=== PATIENT | female | born 1970 | race Caucasian/White ===

== ENCOUNTER 2022-04-01 21:38 | Inpatient (IN) | payer OTHER ==
[~2022-04-01] VITALS: Ht 142.2 cm; Wt 67.6 kg
[2022-04-01 21:49] VITALS: BP 133/90
--- NOTE | 2022-04-01 21:54 | NUR ---
pt to bed 4
[2022-04-01] MEDS ORDERED: NACL 0.9% 1,000 ML IV SCH (22:00)
[2022-04-01] MEDS ORDERED: KETOROLAC 30 MG/ML VIAL IVP ONE (22:00)
[2022-04-01] MEDS ORDERED: ONDANSETRON 4 MG/2 ML VIAL IVP ONE (22:00)
--- NOTE | 2022-04-01 22:10 | NUR ---
ASSUME CARE OF PT, PT C/O RLQ PAIN WITH N/V X 2DAYS, PT PLACED IN GOWN AND MONITOR, PT TENDER TO TOUCH.
[2022-04-01 22:16] LABS: HEMATOCRIT 30.8 % (36-48); HEMOGLOBIN 9.9 g/dL (12.0-16.0); MEAN CORPUSCULAR HEMOGLOBIN 21 pg (27-31); MEAN CORPUSCULAR HGB CONC 32 g/dL (33-37); MEAN CORPUSCULAR VOLUME 65.5 fL (80-94); PLATELET COUNT (AUTO) 447 K/uL (140-450); RED CELL DISTRIBUTION WIDTH 16.2 % (11.6-13.7); WHITE BLOOD COUNT (AUTO) 23.5 K/uL (4.8-10.8)
[2022-04-01 22:38] LABS: ALBUMIN 3.1 g/dL (3.4-5.0); ANION GAP 14.7 (8-16); CARBON DIOXIDE 24.7 mmol/L (21-32); CREATININE 0.6 mg/dL (0.6-1.3); POTASSIUM 3.4 mmol/L (3.5-5.1); TOTAL BILIRUBIN 0.4 mg/dL (0.0-1.0)
[2022-04-01 22:55] LABS: LYMPHOCYTES % (MANUAL) 5 % (20-46); MONOCYTES % (MANUAL) 5 % (5-12)
[2022-04-01] MEDS ORDERED: MORPHINE SULFATE 4 MG/ML SYR IVP ONE (22:55)
--- NOTE | 2022-04-01 23:00 | NUR ---
DR FINE AT BEDSIDE EVALUATING PT
[2022-04-01 23:01] LABS: APPEARANCE,URINE SL CLOUDY (CLEAR); BILIRUBIN,URINE NEGATIVE (NEGATIVE); BLOOD, URINE 1+ (NEGATIVE); COLOR,URINE YELLOW (YELLOW); LEUKOCYTE ESTERASE ,URINE NEGATIVE (NEGATIVE); NITRITE, URINE NEGATIVE (NEGATIVE); UGLUCOSE 3+ (NEGATIVE)
[2022-04-01] MEDS ORDERED: metroNIDAZOLE 500 MG/NS PREMIX 100 ML IV ONE (23:35)
[2022-04-01] MEDS ORDERED: PIPERACILLIN/TAZOBACTAM 3.375 GM in DEXTROSE 5% 50 ML IV ONE (23:35)
[2022-04-01] MEDS ORDERED: PIPERACILLIN/TAZOBACTAM 3.375 GM VIAL IV ONE (23:44)
--- NOTE | 2022-04-02 00:45 | NUR ---
PT C/O INCREASE RLQ ABD PAIN, DR FINE NOTIFIED.
--- NOTE | 2022-04-02 00:52 | NUR ---
CALLED DR POWELL
[2022-04-02] MEDS ORDERED: HYDROmorphone PFS 2 MG/ML SYR IVP ONE (00:55)
--- NOTE | 2022-04-02 01:10 | NUR ---
PER PT CAN GIVE INFORMATION TO SEBASTIAN. SPOKE WITH AND GAVE PT UPDATES.
[2022-04-02 01:16] LABS: PROTHROMBIN TIME 10.2 secs (10.8-13.4)
[2022-04-02] MEDS ORDERED: METF-1243 PO (01:36)
[2022-04-02] MEDS ORDERED: INSU100V9 SQ (01:36)
--- NOTE | 2022-04-02 02:00 | NUR ---
PT RESTING IN BED, PT STATES HER PAIN HAS REDUCED.
[2022-04-02] MEDS ORDERED: DEXT 5% /NACL 0.9% 1,000 ML IV SCH (02:25)
--- NOTE | 2022-04-02 02:51 | NUR ---
Patient will be admitted to care of JAROCHO MOULTON. Admited to TELEMETRY. Will go to room 111A. Belongings list completed. Report to DANIEL ESQUIVEL.
[2022-04-02] MEDS ORDERED: MORPHINE SULFATE 2 MG/ML SYR IVP PRN (02:55)
[2022-04-02 03:15] VITALS: BP 152/80
--- NOTE | 2022-04-02 03:15 | NUR ---
RECEIVED PT FROM EMERGENCY ROOM ADMITTED TO MST UNIT WITH CHIEF COMPLAINT OF RIGHT LOWER ABDOMINAL PAIN , LOWER MID ABDOMINAL PAIN AND NAUSEA/VOMITING, DIAGNOSIS: ACUTE APPENDICITIS & ABDOMINAL PAIN. PT IS AWAKE, ALERT AND ABLE TO VERBALIZED NEEDS. SHE HAS NO ALLERGY, A FULL CODE AND AMBULATORY INDEPENDENTLY. PT IS NPO EXCEPT MEDS AT THIS TIME. IV SITE ON LEFT AC 18G INTACT AND PATENT, INFUSING WELL D5NS AT 125 ML/HR. CONTINUE MONITORING.
--- NOTE | 2022-04-02 04:25 | NUR ---
PT COMPLAINTS OF PAIN 6/10 ON ABDOMINAL AREA. PAIN MEDICATION MORPHINE ADMINISTERED ORDER.
--- NOTE | 2022-04-02 05:25 | NUR ---
PT ASLEEP. NO SOB OR DISTRESS.
--- NOTE | 2022-04-02 07:40 | NUR ---
PT IS ON STABLE CONDITION, ALL SAFETY MEASURES ARE IN PLACE. ENDORSED TO DAY SHIFT NURSE FOR CONTINUITY OF CARE.
[2022-04-02] MEDS ORDERED: POTASSIUM CHLORIDE 10 MEQ TABER PO PRN (07:50)
[2022-04-02] MEDS ORDERED: LORazepam 2 MG/ML VIAL IVP PRN (07:50)
[2022-04-02] MEDS ORDERED: DOCUSATE SODIUM 100 MG GELCAP PO PRN (07:50)
[2022-04-02] MEDS ORDERED: ZOLPIDEM 10 MG TAB PO PRN (07:50)
[2022-04-02] MEDS ORDERED: MAG SULF 2000 MG/WATER PREMIX 50 ML IV PRN (07:50)
[2022-04-02] MEDS ORDERED: DEXTROSE 50% 50 ML SYR IVP PRN (07:55)
[2022-04-02] MEDS ORDERED: NACL 0.9% 1,000 ML IV SCH ×3 (07:55→16:20)
[2022-04-02 08:00] VITALS: BP 128/69
[2022-04-02] MEDS: ACETAMINOPHEN 325 MG TAB PO PRN (08:51)
[2022-04-02] MEDS: MORPHINE SULFATE 2 MG/ML SYR IVP PRN ×3 (08:51→21:06)
[2022-04-02] MEDS ORDERED: KCL 20 MEQ/WATER INJ PREMIX 100 ML IV SCH (10:00)
--- NOTE | 2022-04-02 10:35 | NUR ---
PATIENT HAS BEEN SCREENED AND CATEGORIZED MODERATE NUTRITION RISK. PATIENT WILL BE SEEN WITHIN 3-5 DAYS OF ADMISSION. 04/02/22-04/07/22 REVIEWED BY DELANO WHITE RD Addendum: 04/02/22 at [address] REFERRAL RECEIVED FOR VOMITING OVER THREE DAYS; NOT APPLICABLE DELANO WHITE RD
[2022-04-02] MEDS: BLOOD GLUCOSE MONITORING 1 DEV DEV FS SCH ×3 (11:53→20:28)
[2022-04-02] MEDS: INSULIN LISPRO SLIDING SCALE 100 UNITS/ML VIAL SUBQ PRN ×2 (12:25→20:27)
[2022-04-02] MEDS: PIPERACILLIN/TAZOBACTAM 3.375 GM in DEXTROSE 5% 50 ML IV SCH ×2 (12:25→18:02)
[2022-04-02 12:33] VITALS: BP 116/66
--- NOTE | 2022-04-02 14:20 | NUR ---
DC PLANNING ATTEMPTED TO MEET WITH PATIENT AT BEDSIDE TO COMPLETE ASSESSMENT, HOWEVER, PT NOT IN ROOM
[2022-04-02] MEDS ORDERED: SEVOFLURANE 250 ML BTL INH ONE (14:21)
[2022-04-02] MEDS ORDERED: fentaNYL citrate 0.05 MG/ML VIAL ONE (14:25)
[2022-04-02] MEDS ORDERED: BUPIVACAINE-MPF/EPI 0.5% 30 ML VIAL INJ ONE (14:27)
--- NOTE | 2022-04-02 14:46 | NUR ---
DC PLANIN YRS OLD FEMALE PATIENT WAS ADMITTED FROM HOME WITH A DX OF ACUTE APPENDICITIS. DR POWELL PERFORMED LAP APPY WITH LORENA DRAINAGE. PATIENT STILL COMPLAIN OF ABDOMINAL PAIN WBC 23.5 ON ADMISSION . ADMINISTERED IVF IV ABX ZOSYN AND DILAUDID FOR PAIN. DC PLAN TO GO HOME WHEN STABLE CM TO FOLLOW Addendum: 04/03/22 at 1453 by Lisette Vallejo RN DC PLANNING WBC TRENDING DOWN TO 15.2 CONTINUE IV ABX WITH ZOSYN, STILL COMPLAIN OF ABD PAIN MEDICATED WITH DILAUDID IV. RECEIVED A CALL FROM [employer] [phone] SPOKE WITH RAMILA MOLINA PT'S CLINICAL AND FAXED TO [phone] PER RAMILA SHE IS UNABLE TO SEE THE AUTH NUMBER BUT SHE CONFIRMED THAT IT'S APPROVED UNTIL 04/03. AND AWAITING FOR TODAY'S CLINICAL. DC PLAN TO GO HOME WHEN STABLE. CM TO FOLLOW
[2022-04-02] MEDS ORDERED: PROPOFOL 200 MG/20 ML VIAL IV ONE (15:01)
[2022-04-02] MEDS ORDERED: SUCCINYLCHOLINE CHLORIDE 200 MG/10 ML VIAL IVP ONE (15:01)
[2022-04-02] MEDS ORDERED: ONDANSETRON 4 MG/2 ML VIAL ONE (15:02)
[2022-04-02] MEDS ORDERED: ROCURONIUM 50 MG/5 ML VIAL IV ONE (15:02)
[2022-04-02] MEDS ORDERED: KETOROLAC 30 MG/ML VIAL ONE (15:02)
[2022-04-02] MEDS ORDERED: HYDROmorphone 1 MG/ML AMP IVP PRN (16:20)
[2022-04-02] MEDS: LACTATED RINGERS 1,000 ML IV SCH (16:20)
[2022-04-02] MEDS ORDERED: BLOOD GLUCOSE MONITORING 1 DEV DEV FS SCH (16:20)
[2022-04-02] MEDS ORDERED: hydrALAZINE 20 MG/ML VIAL IVP PRN (16:21)
[2022-04-02] MEDS ORDERED: LABETALOL 20 MG/4 ML VIAL IVP PRN (16:21)
[2022-04-02] MEDS ORDERED: METOCLOPRAMIDE 10 MG/2 ML INJ VIAL IVP PRN (16:21)
[2022-04-02 17:23] VITALS: BP 124/79
--- NOTE | 2022-04-02 17:28 | NUR ---
PT RETURNED FROM OR, VSS, C/O 10 OUT OF 10 PAIN, PRN MEDICATION GIVEN, ON RA, BP STABLE, KENNEDY CATHETER IN PLACE, DRAINING WELL, LORENA DRAIN IN PLACE, EDUCATED PT WHILE EMPTYING IT, NS FLUIDS STARTED, NEW IV RH IN PLACE, DRESSING DRY AND INTACT, PT AWAKE AND ALERT, SAFETY MEASURES MAINTAINED, SCDS IN PLACE, BED ALARM ON, CALL LIGHT WITHIN RANGE, WILL CONTINUE TO MONITOR.
--- NOTE | 2022-04-02 19:20 | NUR ---
RECEIVED PT FROM AM NURSE FOR CONTINUITY OF CARE. PT IS STABLE
[2022-04-02 20:00] VITALS: BP 135/71
--- NOTE | 2022-04-02 22:45 | NUR ---
PATIENT COMPLAINED OF 10/10 ABDOMINAL PAIN. MORPHINE 2MG NOT EFFECTIVE. MESSAGED DR ZHOU AND GAVE AN ORDER DILAUDID 1 MG IV ONCE ,ORDER CARRIED OUT
[2022-04-02] MEDS ORDERED: HYDROmorphone 1 MG/ML AMP IVP SCH (22:50)
--- NOTE | 2022-04-02 23:30 | NUR ---
PATIENT ASLEEP, BREATHING EVEN AND UNLABORED, NO DISTRESS NOTED
[2022-04-03] VITALS: BP 127/68
[2022-04-03] MEDS: PIPERACILLIN/TAZOBACTAM 3.375 GM in DEXTROSE 5% 50 ML IV SCH ×4 (00:09→18:28)
[2022-04-03] MEDS: LACTATED RINGERS 1,000 ML IV SCH ×3 (02:14→22:34)
[2022-04-03 04:00] VITALS: BP 131/76
[2022-04-03] MEDS: ONDANSETRON 4 MG/2 ML VIAL IVP PRN ×3 (05:14→21:50)
[2022-04-03] MEDS: MORPHINE SULFATE 2 MG/ML SYR IVP PRN (05:15)
[2022-04-03] MEDS: INSULIN LISPRO SLIDING SCALE 100 UNITS/ML VIAL SUBQ PRN ×4 (06:37→20:51)
[2022-04-03] MEDS: BLOOD GLUCOSE MONITORING 1 DEV DEV FS SCH ×4 (06:39→20:50)
[2022-04-03 06:58] LABS: ANION GAP 14.3 (8-16); CARBON DIOXIDE 23.3 mmol/L (21-32); CREATININE 0.6 mg/dL (0.6-1.3); POTASSIUM 3.6 mmol/L (3.5-5.1)
[2022-04-03 07:18] LABS: BASOPHILS % (AUTO) 0.1 % (0.0-2.0); HEMATOCRIT 27.4 % (36-48); HEMOGLOBIN 8.5 g/dL (12.0-16.0); LYMPHOCYTES # (AUTO) 0.8 K/uL (2.5-16.5); LYMPHOCYTES % (AUTO) 5.2 % (20.5-51.1); MEAN CORPUSCULAR HEMOGLOBIN 21 pg (27-31); MEAN CORPUSCULAR HGB CONC 31 g/dL (33-37); MEAN CORPUSCULAR VOLUME 66.4 fL (80-94); MONOCYTES # (AUTO) 1.4 K/uL (0.8-1.0); NEUTROPHILS # (AUTO) 13.1 K/uL (1.8-7.7); NEUTROPHILS % (AUTO) 85.7 % (42.2-75.2); PLATELET COUNT (AUTO) 395 K/uL (140-450); RED BLOOD CELL COUNT(AUTO) 4.12 MIL/uL (4.20-5.40); RED CELL DISTRIBUTION WIDTH 17.1 % (11.6-13.7); WHITE BLOOD COUNT (AUTO) 15.2 K/uL (4.8-10.8)
--- NOTE | 2022-04-03 07:30 | NUR ---
RECEIVED REPORT FROM CHISEL TRIMMER NURSE. PT STABLE. NO S/S OF DISTRESS. CALL LIGHT IN REACH. ALL SAFETY MEASURES IN PLACE. IV FLUIDS NOT RUNNING PER MD ORDER, RESTARTED. KENNEDY STILL IN PLACE. CALLED MD FOR ORDER TO DC KENNEDY AND CODE STATUS.
[2022-04-03 08:00] VITALS: BP 133/74
--- NOTE | 2022-04-03 08:06 | NUR ---
KENNEDY CATHETER REMOVED PER MD ORDER. PT UP TO BR. PT COMPLAINT OF PAIN 11/28, WILL MEDICATE. TEMP 100.5, COOLING MEASURES STARTED. WILL ASSIST WITH AMBULATION WITH DECREASED PAIN
--- NOTE | 2022-04-03 08:09 | NUR ---
DRAIN IN PLACE, EMPTIED
[2022-04-03] MEDS: HYDROcodone/APAP 5/325 MG 1 TAB TAB PO PRN (08:23)
--- NOTE | 2022-04-03 08:24 | NUR ---
PT COMPLAINT OF PAIN AND N.V. ADMINISTERED MEDICATIONS PER MD ORDER. CALL LIGHT IN REACH. ALL SAFETY MEASURES IN PLACE
[2022-04-03 12:00] VITALS: BP 130/78
--- NOTE | 2022-04-03 12:00 | NUR ---
GLUCOSE 269, HUMULIN 6 UNITS GIVEN SQ.
[2022-04-03] MEDS: HYDROmorphone 1 MG/ML AMP IVP PRN ×2 (15:40→21:57)
--- NOTE | 2022-04-03 15:42 | NUR ---
PAIN MEDICATION GIVEN PER MD ORDER, PT 03/30. ADMINISTERED ZOFRAN PER MD ORDER, PT EXPERIENCING N/V. PT SITTING ON EDGE OF BED. CALL LIGHT IN REACH. ALL SAFETY MEASURES IN PLACE
[2022-04-03 16:00] VITALS: BP 126/73
--- NOTE | 2022-04-03 17:00 | NUR ---
PATIENT IS A 51 YEAR OLD FEMALE ADMITTED AT THE [facility]/ED DUE TO ACUTE APPENDICITIS AND ABDOMINAL PAIN SINCE WEDNESDAY. PATIENT HAS A MEDICAL HISTORY OF DIABETES AND HIGH BLOOD PRESSURE. (PATIENT IS [place] SPEAKING ONLY). SW MET WITH PATIENT AT BEDSIDE TO DISCUSS AND GATHER PATIENT'S COLLATERAL INFORMATION. PATIENT WAS ALERT AND AWAKE DURING MEETING WITH SW REPORTED LIVING AT HOME WITH HER AND ADULT 29 YEAR OLD DAUGHTER. REPORTED THAT SHE HAS A GOOD SUPPORT SYSTEM FROM HER FAMILY. PATIENT REPORTED BEEN ACTIVE AND INDEPENDENT AT HOME, PATIENT REPORTED NOT HAVING ADVANCE DIRECTIVES AND WAS INTERESTED ON GETTING INFORMATION PACKET PROVIDED BY SW AT THE TIME OF VISIT. PER PATIENT HER SEBASTIAN DEJESUS IS HER EMERGENCY CONTACT AND MEDICAL DESICION MAKER. PATIENT REPORTED NOT HAVING OR NEEDING DME AND NOT HAVING ANY ISSUES WITH GETTING OR TAKING ANY MEDICATIONS FROM HER PHARMACY AT [facility] IN [facility]. SW EXPLAINED TO PATIENT THE NEED TO FOLLOW UP WITH AN APPOINTMENT WITHIN 5-[address] GUTIERREZ IN [facility] IN [place] AFTER HER DISCHARGE. PATIENT AGREED AND STATED THAT SHE WILL MAKE HER OWN APPOINTMENT. PATIENT DECLINED FOR SW TO MAKE HER FOLLOW UP APPOINTMENT; WITH PRIMARY DOCTOR AFTER SHE DISCHARGES FROM [facility]. PATIENT STATED THAT OR DAUGHTER WILL BE ASSISTING HER WITH TRANSPORTATION BACK HOME WHEN SHE IS READY AND STABLE TO DISCHARGE. SW WILL FOLLOW UP WITH PATIENT NEEDED.
--- NOTE | 2022-04-03 17:50 | NUR ---
PT AMBULATED HALLWAY. NO S/S OF DISTRESS.
--- NOTE | 2022-04-03 18:06 | NUR ---
DR. POWELL AT THE BEDSIDE. ORDERS RECEIVED FOR ID CONSULT, ADVANCE REGULAR DIET AND DC IV FLUIDS WITH ADEQUATE INTAKE. PT INSTRUCTED TO FOLLOWUP WITH MD 1 WEEK POST-DC IN OFFICE FOR LORENA DRAIN REMOVAL. PT OK TO SHOWER ON WEDNESDAY.
--- NOTE | 2022-04-03 19:09 | NUR ---
ENDORSED PT TO INSPECTOR MULTIFOCAL LENS NURSE. NO S/S OF DISTRESS. CALL LIGHT IN REACH. ALL SAFETY MEASURES IN PLACE
--- NOTE | 2022-04-03 19:10 | NUR ---
RECEIVED ENDORSEMENT FROM PASCUAL ESQUIVEL FOR CONTINUITY OF CARE. PATIENT WAS ASLEEP AND STABLE DURING THE CHANGE OF SHIFT. PATIENT WAS BREATHING ON ROOM AIR WITHOUT DISTRESS. NO NOTED S/S OF PAIN POST SURGICAL PROCEDURE. PATIENT HAS TWO SIDE RAILS UP FOR MOBILITY ANS COMFORT. NURSING NOTED PATIENT HAD ONLY EATEN THE BROCCOLI ON HER DINNER TRAY AND NOTHING ELS. NURSING WILL LEAVE THE TRAY TO INQUIRE IF PATIENT WOULD LIKE EAT MORE LATER OR HAVE AN ALTERATIVE LIKE A SANDWICH. CALL LIGHT WITHIN REACH BED AT LOWEST LEVEL FOR SAFETY. MNURPH1
[2022-04-03 20:00] VITALS: BP 144/89
--- NOTE | 2022-04-03 20:00 | NUR ---
Patient's Plan of Care was discussed and reviewed with PARTH: TE
--- NOTE | 2022-04-03 21:50 | NUR ---
PATIENT WAS GIVEN PAIN AND NAUSEA MEDICATION BECAUSE OF NAUSEA AND COMPLAINING OF PAIN. COVERING RN GAVE BOTH MEDICATION VIA IVP. NURSING WILL MONITOR FOR EFFECTIVENESS AND PAIN REDUCTION. MNURPH1
--- NOTE | 2022-04-03 23:41 | NUR ---
PATIENT WAS ENCOURAGED TO KEEP OXYGEN WITH 2LITER ON BECAUSE OF MEDICATION HER OXYGEN SATURATION AND RESPIRATION DROPS. PATIENT UNDERSTOOD AND COMPLIED. NURSING WILL CONTINUE TO MONITOR FOR SAFETY, PAIN MANAGEMENT, AND CONFORMABILITY. MNURPH1
[2022-04-04] VITALS: BP 126/75
[2022-04-04] MEDS: PIPERACILLIN/TAZOBACTAM 3.375 GM in DEXTROSE 5% 50 ML IV SCH ×5 (00:14→23:06)
--- NOTE | 2022-04-04 01:42 | NUR ---
PATIENT WAS GIVEN SANDWICH TO EAT. PATIENT WAS RETURNING TO BED FROM RESTROOM. PATIENT DENIED ANY PAIN/DISCOMFORT. NO NOTED RESPIRATORY DISTRESS BUT PUT BACK THE NASAL CANULA WITH 2LITER OF OXYGEN. MNURPH1
[2022-04-04 04:00] VITALS: BP 150/85
[2022-04-04] MEDS: HYDROmorphone 1 MG/ML AMP IVP PRN ×2 (04:43→21:09)
--- NOTE | 2022-04-04 05:45 | NUR ---
IV FLUIDS WERE DISCONTINUED PER MD INSTRUCTION TO PATIENT INTAKE. PATIENT WAS GIVEN PAIN MANAGEMENT FROM COVERING RN AND WAS EFFECTIVE. PATIENT REPORTED GOING TO THE RESTROOM 3 TIME AND BOWEL MOVEMENT TWICE. PATIENT CLAIMS STOOL WAS BLACK. WILL ENDORSE TO AM NURSE AND MONITOR LABS FOR LOW HGT AND HCT. [email or web address]
[2022-04-04] MEDS: BLOOD GLUCOSE MONITORING 1 DEV DEV FS SCH ×5 (06:26→20:54)
[2022-04-04 06:50] LABS: BASOPHILS % (AUTO) 0.2 % (0.0-2.0); EOSINOPHILS % (AUTO) 0.1 % (0.0-4.0); HEMATOCRIT 24.5 % (36-48); HEMOGLOBIN 7.6 g/dL (12.0-16.0); MEAN CORPUSCULAR HEMOGLOBIN 21 pg (27-31); MEAN CORPUSCULAR HGB CONC 31 g/dL (33-37); MEAN CORPUSCULAR VOLUME 66.6 fL (80-94); MONOCYTES # (AUTO) 1.2 K/uL (0.8-1.0); MONOCYTES % (AUTO) 6.6 % (1.7-9.3); NEUTROPHILS # (AUTO) 15.3 K/uL (1.8-7.7); NEUTROPHILS % (AUTO) 87.1 % (42.2-75.2); PLATELET COUNT (AUTO) 408 K/uL (140-450); RED BLOOD CELL COUNT(AUTO) 3.68 MIL/uL (4.20-5.40); RED CELL DISTRIBUTION WIDTH 16.7 % (11.6-13.7); WHITE BLOOD COUNT (AUTO) 17.6 K/uL (4.8-10.8)
[2022-04-04 06:51] LABS: ANION GAP 13.2 (8-16); CARBON DIOXIDE 25.2 mmol/L (21-32); CREATININE 0.6 mg/dL (0.6-1.3); POTASSIUM 3.4 mmol/L (3.5-5.1)
[2022-04-04] MEDS: INSULIN LISPRO SLIDING SCALE 100 UNITS/ML VIAL SUBQ PRN ×4 (07:09→20:57)
--- NOTE | 2022-04-04 07:39 | NUR ---
ENDORSED PATIENT TO ARIA ESQUIVEL FOR CONTINUITY OF CARE. PATIENT WAS STABLE DURING THE CHANGE OF SHIFT. MNURPH1
--- NOTE | 2022-04-04 07:40 | NUR ---
RECEIVED BEDSIDE REPORT FROM [facility] APR[facility] TIWARI FOR CONTINUITY OF CARE. PT IS ON 2L NC WITH UNLABORED BREATHING. PT IS CURRENTLY SLEEPING WITH NO S/S OF DISTRESS. PT HAS A 20G IV ON THE LEFT AC, AND 18G IV ON THE RIGHT HAND WHICH ARE BOTH SALINE LOCKED. PTS BED IS IN LOWEST POSITION, WITH TWO BED SIDE RAILS UP, AND CALL LIGHT WITHIN REACH.
[2022-04-04 08:00] VITALS: BP 154/86
[2022-04-04] MEDS: ACETAMINOPHEN 325 MG TAB PO PRN (10:39)
[2022-04-04] MEDS: ONDANSETRON 4 MG/2 ML VIAL IVP PRN (10:48)
[2022-04-04 12:00] VITALS: BP 132/84
[2022-04-04] MEDS: HYDROcodone/APAP 5/325 MG 1 TAB TAB PO PRN (13:45)
[2022-04-04] MEDS: SODIUM CHLORIDE FLUSH 10 ML SYR IVF SCH ×2 (13:51→20:54)
--- NOTE | 2022-04-04 14:30 | NUR ---
ASSISTED PT TO RR, PTS URINE HAS DARK GREEN DISCHARGE. PT DENIED PAIN, PT ALSO DENIED BOWEL MOVEMENT. WILL CONTINUE TO MONITOR PTS OUTPUTS FOR ACUTE CHANGES.
[2022-04-04 16:00] VITALS: BP 130/80
[2022-04-04 18:36] LABS: APPEARANCE,URINE HAZY (CLEAR); BILIRUBIN,URINE 1+ (NEGATIVE); BLOOD, URINE NEGATIVE (NEGATIVE); COLOR,URINE YELLOW (YELLOW); LEUKOCYTE ESTERASE ,URINE NEGATIVE (NEGATIVE); NITRITE, URINE NEGATIVE (NEGATIVE); UGLUCOSE 2+ (NEGATIVE)
--- NOTE | 2022-04-04 19:28 | NUR ---
ENDORSED PT TO MANAGER BALANCE NURSE COATES. NO S/S OF DISTRESS. CALL LIGHT IN REACH. ALL SAFETY MEASURES IN PLACE. PT STABLE.
--- NOTE | 2022-04-04 19:30 | NUR ---
RECEIVED REPORT FROM AM NURSE LEXI RN FOR CONTINUITY OF CARE. PT IS STABLE IN BED. A&OX4 ESTONIAN SPEAKING MAINLY ESPECIALLY FOR EXPLANATIONS. DENIES PAIN AT THIS TIME. ON 02 3L/NC O2 BSE=380%. NO ACUTE DISTRESS. RR EVEN AND UNLABORED WITH EQUAL CHEST RISE.. GI INTACT ATE 80% OF CCHO 45GM DIET FOR DINNER. PT'S SKIN HAS LOWER ABDOMINAL INCISION WITH INTRAPERITONEAL LORENA DRAIN DRAINING SCANT AMT PURULENT DRAINAGE. DRESSING IS D&I. IV L HAND 22G S.L. RECEIVING ZOSYN 3.375GM IVPB. NS FLUSH TO MAINTAIN PATENCY. PT IS AMBULATORY WITH STANDBY ASSIST. VOIDING IN BATHROOM. NO BM TODAY. ALL SAFETY MEASURES IN PLACE. BED IN LOW AND LOCKED POSITION. CALL LIGHT WITHIN REACH. WILL CONTINUE TO MONITOR.
[2022-04-04 19:35] LABS: RBC,URINE 0-5 /HPF (0-5); WBC,URINE 0-5 /HPF (0-5)
[2022-04-04 20:00] VITALS: BP 118/73
--- NOTE | 2022-04-04 21:10 | NUR ---
PT UP TO BATHROOM. AMBULATING WITH STANDBY ASSIST. PASSING GAS AND BELCHING. VOIDED NO BM. BACK TO BED. C/O 01/28 LOWER ABDOMINAL INCISIONAL PAIN AND BACK PAIN. MEDICATED WITH DILAUDID 1MG IVP, AND COVERED WITH 2 WARM BLANKETS. CALL LIGHT WITHIN REACH. WILL CONTINUE WITH FREQ ROUNDS.
[2022-04-05] VITALS: BP 102/72
[2022-04-05 04:00] VITALS: BP 138/84
[2022-04-05] MEDS: HYDROmorphone 1 MG/ML AMP IVP PRN ×2 (04:58→22:33)
[2022-04-05] MEDS: PIPERACILLIN/TAZOBACTAM 3.375 GM in DEXTROSE 5% 50 ML IV SCH ×2 (05:04→13:33)
[2022-04-05] MEDS: SODIUM CHLORIDE FLUSH 10 ML SYR IVF SCH ×3 (05:04→21:30)
--- NOTE | 2022-04-05 05:05 | NUR ---
PT UP TO BATHROOM WITH STANDBY ASSIST. VOIDED AND HAD SMALL BM. WHILE SITTING ON TOILET, RECEIVED DILAUDID 1MG IVP FOR C/O8/10 ABDOMINAL PAIN AND ZOFRAN 4MG/2ML IVP FOR NAUSEA. ZOSYN 3.375GM IVPB HUNG. LORENA DRAIN EMPTIED 10CC OF PURULENT FLUID. ORANGE JUICE AND WATER GIVEN REQUESTED. PT SITTING UP IN BED TEXTING ON HER CELL PHONE. DISTRACTION NO MORE NAUSEA OR EMESIS @ 0540. AM COMPO CONVEYOR OPERATOR HERE TO DRAW LABS. CALL LIGHT WITHIN REACH. WILL CONTINUE WITH FREQ VISUAL CHECKS.
[2022-04-05] MEDS: ONDANSETRON 4 MG/2 ML VIAL IVP PRN ×2 (05:08→22:40)
[2022-04-05] MEDS: INSULIN LISPRO SLIDING SCALE 100 UNITS/ML VIAL SUBQ PRN ×3 (06:28→17:55)
--- NOTE | 2022-04-05 06:30 | NUR ---
PM=318 COVERED WITH 4 UNITS HUMALOG INSULIN PER SLIDING SCALE. NO MORE NAUSEA,/VOMITING OR C/O INCISIONAL PAIN.. PT LYING IN BED QUIETLY PLAYING A GAME ON HER CELL PHONE. CALL LIGHT WITHIN REACH. WILL CONTINUE TO MONITOR.
[2022-04-05 06:37] LABS: HEMATOCRIT 25.2 % (36-48); HEMOGLOBIN 7.8 g/dL (12.0-16.0); MEAN CORPUSCULAR HEMOGLOBIN 21 pg (27-31); MEAN CORPUSCULAR HGB CONC 31 g/dL (33-37); MEAN CORPUSCULAR VOLUME 66.5 fL (80-94); PLATELET COUNT (AUTO) 428 K/uL (140-450); RED CELL DISTRIBUTION WIDTH 16.7 % (11.6-13.7); WHITE BLOOD COUNT (AUTO) 16.5 K/uL (4.8-10.8)
[2022-04-05 06:40] LABS: ANION GAP 11.3 (8-16); CARBON DIOXIDE 27.7 mmol/L (21-32); CREATININE 0.6 mg/dL (0.6-1.3)
[2022-04-05 07:08] LABS: LYMPHOCYTES % (MANUAL) 8 % (20-46)
[2022-04-05 07:09] LABS: EOSINOPHILS % (MANUAL) 3 % (0-4); MONOCYTES % (MANUAL) 6 % (5-12)
--- NOTE | 2022-04-05 07:55 | NUR ---
ENDORSED REPORT TO NURSE SAINI FOR CONTINUITY OF CARE. PT IS BARTOLOME. ALL NEEDS MET THROUGHOUT THE SHIFT.
[2022-04-05 08:00] VITALS: BP 154/80
[2022-04-05] MEDS: BLOOD GLUCOSE MONITORING 1 DEV DEV FS SCH ×3 (11:30→21:57)
[2022-04-05 12:00] VITALS: BP 145/64
[2022-04-05 16:00] VITALS: BP 139/57
--- NOTE | 2022-04-05 19:30 | NUR ---
RECEIVED REPORT FROM NURSE PARVEEN RN FOR CONTINUITY OF CARE. PT IS STABLE IN BED. A&O X4. DENIES PAIN AT THIS TIME. ON O2 3L/NC. NAD. RR EVEN AND UNLABORED WITH EQUAL CHEST RISE. GI INTACT. PT'S SKIN LOW5ER ABDOMINAL DRESSING D&I MEDIAL LORENA DRAIN HANGING TO L SIDE DRAINING SCANT AMT PURULENT FLUID. PT IS AMBULATORY AND CONTINENT. ALL SAFETY MEASURES IN PLACE. CALL LIGHT WITHIN REACH. WILL CONTINUE TO MONITOR.
[2022-04-05 20:00] VITALS: BP 156/80
[2022-04-05] MEDS ORDERED: MEROPENEM 1,000 MG VIAL IV ONE (21:36)
[2022-04-05] MEDS: MEROPENEM 1,000 MG in NACL 0.9% 50 ML IV SCH (21:57)
[2022-04-06] VITALS: BP 145/64
[2022-04-06 04:00] VITALS: BP 154/85
[2022-04-06] MEDS ORDERED: MEROPENEM 1,000 MG VIAL IV ONE (04:19)
[2022-04-06] MEDS: MEROPENEM 1,000 MG in NACL 0.9% 50 ML IV SCH ×2 (04:22→12:53)
[2022-04-06] MEDS: SODIUM CHLORIDE FLUSH 10 ML SYR IVF SCH ×2 (04:26→12:53)
[2022-04-06 05:56] LABS: BASOPHILS # (AUTO) 0.1 K/uL (0.00-0.22); BASOPHILS % (AUTO) 0.4 % (0.0-2.0); EOSINOPHILS # (AUTO) 0.3 K/uL (0-0.4); EOSINOPHILS % (AUTO) 2.3 % (0.0-4.0); HEMATOCRIT 26.2 % (36-48); HEMOGLOBIN 8.3 g/dL (12.0-16.0); LYMPHOCYTES # (AUTO) 1.7 K/uL (2.5-16.5); LYMPHOCYTES % (AUTO) 13.2 % (20.5-51.1); MEAN CORPUSCULAR HEMOGLOBIN 21 pg (27-31); MEAN CORPUSCULAR HGB CONC 32 g/dL (33-37); MEAN CORPUSCULAR VOLUME 66.1 fL (80-94); MONOCYTES % (AUTO) 7.6 % (1.7-9.3); NEUTROPHILS # (AUTO) 10.1 K/uL (1.8-7.7); NEUTROPHILS % (AUTO) 76.5 % (42.2-75.2); PLATELET COUNT (AUTO) 506 K/uL (140-450); RED BLOOD CELL COUNT(AUTO) 3.97 MIL/uL (4.20-5.40); RED CELL DISTRIBUTION WIDTH 16.5 % (11.6-13.7); WHITE BLOOD COUNT (AUTO) 13.2 K/uL (4.8-10.8)
[2022-04-06] MEDS: HYDROmorphone 1 MG/ML AMP IVP PRN ×2 (06:08→18:27)
[2022-04-06] MEDS: BLOOD GLUCOSE MONITORING 1 DEV DEV FS SCH ×3 (06:41→17:42)
[2022-04-06 06:44] LABS: CARBON DIOXIDE 31.1 mmol/L (21-32); CREATININE 0.6 mg/dL (0.6-1.3); POTASSIUM 3.1 mmol/L (3.5-5.1)
[2022-04-06] MEDS: INSULIN LISPRO SLIDING SCALE 100 UNITS/ML VIAL SUBQ PRN ×2 (06:45→12:58)
[2022-04-06 08:00] VITALS: BP 146/87
[2022-04-06] MEDS ORDERED: LEVO-481 PO (10:14)
[2022-04-06] MEDS ORDERED: METR-520 PO (10:15)
[2022-04-06] MEDS ORDERED: HYDR-5080 PO (10:16)
[2022-04-06 12:00] VITALS: BP 140/88
[2022-04-06 16:00] VITALS: BP 136/85
[2022-04-06 16:29] VITALS: BP 136/85
[2022-04-06] MEDS ORDERED: SULF-59 PO (17:13)
[2022-04-06] MEDS ORDERED: AMOX-999 PO (17:14)
--- NOTE | 2022-04-06 19:55 | NUR ---
ID MD Garcia paged at 0900 and stated that "dont discharge pt until i see her". MD Garcia finally called back regarding to ATB prescription at 1730. Endorsed MD Bell about Dr. Garcia's request to change ATB to Bactrim DS and Augmentin instead of Flagyl and levaquin. axo4. pain relieved after dilaudid 1mg given. stable VTs. PT's discharge instruction given to pt and her daughter at bedside. pt and her daughter verified understanding. pt's left facility at 1920
== END 2022-04-06 19:20 | disposition home or self-care (01) | DRG 336 ==
LOC: MED 21:38 → MTU 04-02 02:05
PROVIDERS: ADMIT Family Medicine; ATTEND Family Medicine
PROC: 0DNU4ZZ Release Omentum, Percutaneous Endoscopic Approach (ICD-10-PCS; 2022-04-02)
PROC: 0DTJ4ZZ Resection of Appendix, Percutaneous Endoscopic Approach (ICD-10-PCS; principal; 2022-04-02 13:00)
DX: K35.891 Other acute appendicitis without perforation, with gangrene (principal); E87.0 Hyperosmolality and hypernatremia; Z20.822 Contact with and (suspected) exposure to COVID-19; E11.65 Type 2 diabetes mellitus with hyperglycemia; K42.9 Umbilical hernia without obstruction or gangrene; D72.829 Elevated white blood cell count, unspecified; D50.9 Iron deficiency anemia, unspecified; E87.6 Hypokalemia; E83.51 Hypocalcemia; Z98.891 History of uterine scar from previous surgery; Z83.3 Family history of diabetes mellitus; Z82.49 Family history of ischemic heart disease and other diseases of the circulatory system
CPT/HCPCS: 36415; 71045; 80048; 80053; 81001; 81025; 82374; 82948; 83605; 83690; 83735; 85025; 85610; 85730; 86886; 86900; 86901; 87040; 87070; 87075; 87081; 87086; 87205; 88304; 93005; 99291; J0330; J1170; J1815; J1885; J2185; J2270; J2405; J2543; J2704; J2765; J3010; J3480; J3490; J7030; J7060; Q0092